=== PATIENT | male | born 1945 | race Caucasian/White ===

== ENCOUNTER 2023-04-04 20:20 | Emergency (ER) | payer OTHER ==
[2023-04-04 20:36] VITALS: BMI 23.8
[2023-04-05 01:03] VITALS: BP 132/89; PULSE 80; RESP 18; TEMP 98.7
[2023-04-05] MEDS ORDERED: MELATONIN 5 MG TABLETS PO ONE (02:23)
[2023-04-05] MEDS ORDERED: MELATONIN 5 MG TABLETS ONE ×2 (02:24→03:11)
[2023-04-05 03:35] LABS: EPI CELLS 5 /uL (0-25.1); HYALINE CASTS 1 /uL (0-3.1); URINE APPEARANCE TURBID; URINE BACTERIA 2496 /uL (0-1359); URINE BILIRUBIN NEGATIVE (NEGATIVE); URINE COLOR ORANGE; URINE GLUCOSE (UA) NEGATIVE (NEGATIVE); URINE KETONE NEGATIVE (NEGATIVE); URINE LEUK ESTERASE 3+ (NEGATIVE); URINE NITRITE NEGATIVE (NEGATIVE); URINE PROTEIN 1+ (NEGATIVE); URINE RBC 2568 /uL (0-23.9); URINE WBC 1100 /uL (0-25.8)
== END 2023-04-05 05:08 ==
LOC: JER 20:20
PROC: 0T9B80Z Drainage of Bladder with Drainage Device, Via Natural or Artificial Opening Endoscopic (ICD-10-PCS; principal; 2023-04-04)
DX: N45.1 Epididymitis (principal); T83.021A Displacement of indwelling urethral catheter, initial encounter; R10.30 Lower abdominal pain, unspecified
CPT/HCPCS: 76856-TC; 76870-TC; 81003; 87077; 87086; 87186; 99284-25

== ENCOUNTER 2023-06-26 05:52 | Observation (INO) | payer OTHER ==
[2023-06-26] MEDS ORDERED: ASPIRIN 81 MG CHEWABLE TABLETS PO ONE (06:02)
[2023-06-26] MEDS ORDERED: ACETAMINOPHEN 1000 MG/100 ML BAG IVPB ONE (06:08)
[2023-06-26] MEDS ORDERED: ASPIRIN 81 MG CHEWABLE TABLETS ONE (06:11)
[2023-06-26 06:16] LABS: BASO % 1.2 % (0-2.0); EOS % 9.5 % (0-4.5); HEMATOCRIT 38.3 % (35.4-49); HEMOGLOBIN 12.5 GM/dL (11.7-16.9); LYMPH % 8.9 % (8-40); MCH 29.7 pg (25.7-33.7); MCHC 32.7 g/dl (32.0-35.9); MEAN CELL VOLUME 91.1 fl (80-96); MEAN PLT VOLUME 7.1 fl (7.5-11.1); MONO % 14.6 % (3.8-10.2); NEUT % 65.8 % (42.8-82.8); PLATELET COUNT 240 10^3/uL (134-434); RDW 13.7 % (11.9-15.9); WHITE BLOOD COUNT 7.6 K/mm3 (4.0-10.0)
[2023-06-26 06:34] LABS: INR 1.04 (0.83-1.09); PROTHROMBIN TIME (PATIENT) 12.1 SEC (9.7-13.0)
[2023-06-26 06:36] LABS: ACTIVATED PTT 30.9 SECONDS (25.2-36.5)
[2023-06-26 06:41] LABS: POTASSIUM 4.4 mmol/L (3.5-5.1)
[2023-06-26 06:43] LABS: BLOOD UREA NITROGEN 10.3 mg/dL (7-18); CALCIUM 9.4 mg/dL (8.5-10.1)
[2023-06-26 06:44] LABS: ALBUMIN 3.6 g/dl (3.4-5.0)
[2023-06-26 06:47] LABS: CREATININE 0.8 mg/dL (0.55-1.3)
[2023-06-26 06:48] LABS: BILIRUBIN,TOTAL 0.5 mg/dL (0.2-1)
[2023-06-26 06:51] LABS: N-TERMINAL BNP 91.5 pg/ml (5-450)
[2023-06-26] MEDS ORDERED: ALBUTEROL SO4 0.083% IH SOL 2.5 MG/3 ML VIAL.NEB. NEB PRN (08:30)
[2023-06-26] MEDS ORDERED: METOPROLOL TARTRATE 25 MG TABLET (FP) ONE (09:29)
[2023-06-26] MEDS ORDERED: ISOSORBIDE MONONITRATE 30 MG TAB.SR.24H (FP) PO ONE (09:30)
[2023-06-26] MEDS ORDERED: MAGNESIUM HYDROX 2400MG/30ML ORAL SUSPENSION 30 ML CUP ONE ×2 (09:30→09:59)
[2023-06-26] MEDS ORDERED: traZODone HCL 50 MG TABLET (FP) ONE (09:31)
[2023-06-26] MEDS ORDERED: PANTOPRAZOLE SODIUM 40 MG/100 ML BAG IVPB ONE (09:32)
[2023-06-26] MEDS: traZODone HCL 50 MG TABLET (FP) PO SCH ×2 (09:55→21:47)
[2023-06-26] MEDS: METOPROLOL TARTRATE 25 MG TABLET (FP) PO SCH (09:56)
[2023-06-26] MEDS: ISOSORBIDE MONONITRATE 30 MG TAB.SR.24H (FP) PO SCH (09:56)
[2023-06-26] MEDS: MAGNESIUM HYDROX 2400MG/30ML ORAL SUSPENSION 30 ML CUP PO SCH ×2 (09:56→21:43)
[2023-06-26] MEDS: PANTOPRAZOLE SODIUM 40 MG VIAL IVPUSH SCH (10:00)
[2023-06-26] MEDS ORDERED: FAMOTIDINE 20 MG TABLET PO SCH (10:00)
[2023-06-26] MEDS ORDERED: POLYETHYLENE GLYCOL 3350 255 GM BTL PO SCH (10:00)
[2023-06-26] MEDS: FINASTERIDE 5 MG TABLET (FP) PO SCH (11:27)
[2023-06-26] MEDS: EZETIMIBE 10 MG TABLET (FP) PO SCH (11:28)
[2023-06-26 20:40] VITALS: BMI 30.9
[2023-06-26] MEDS: ATORVASTATIN CA 80 MG TABLET (FP) PO SCH (21:43)
[2023-06-26] MEDS: SENNOSIDES 8.6MG TABLET (FP) PO SCH (21:43)
[2023-06-26] MEDS: TAMSULOSIN HCL 0.4 MG CAP PO SCH (21:43)
[2023-06-27 07:45] LABS: BASO % 1.4 % (0-2.0); EOS % 10.7 % (0-4.5); HEMATOCRIT 42.1 % (35.4-49); HEMOGLOBIN 14.1 GM/dL (11.7-16.9); LYMPH % 12.8 % (8-40); MCH 29.7 pg (25.7-33.7); MCHC 33.6 g/dl (32.0-35.9); MEAN CELL VOLUME 88.5 fl (80-96); MEAN PLT VOLUME 6.9 fl (7.5-11.1); MONO % 14.3 % (3.8-10.2); NEUT % 60.8 % (42.8-82.8); PLATELET COUNT 268 10^3/uL (134-434); RBC 4.76 M/mm3 (4.00-5.60); RDW 14.1 % (11.9-15.9); WHITE BLOOD COUNT 6.9 K/mm3 (4.0-10.0)
[2023-06-27 08:35] LABS: MAGNESIUM 2.3 mg/dL (1.8-2.4)
[2023-06-27 08:38] LABS: PHOSPHOROUS 2.6 mg/dL (2.5-4.9)
[2023-06-27 08:41] LABS: CHOLESTEROL 186 mg/dL (50-200)
[2023-06-27 08:42] LABS: LDL CHOLESTEROL (ONLY SJRH) 66 mg/dL (5-100)
[2023-06-27 08:44] LABS: HDL CHOLESTEROL 111 mg/dL (40-60)
[2023-06-27] MEDS: ENOXAPARIN NA (PORCINE) 40 MG/0.4 ML DISP.SYRIN SQ SCH (09:17)
[2023-06-27] MEDS: MAGNESIUM HYDROX 2400MG/30ML ORAL SUSPENSION 30 ML CUP PO SCH ×2 (09:18→23:05)
[2023-06-27] MEDS: PANTOPRAZOLE SODIUM 40 MG VIAL IVPUSH SCH (09:18)
[2023-06-27] MEDS: ISOSORBIDE MONONITRATE 30 MG TAB.SR.24H (FP) PO SCH (09:19)
[2023-06-27] MEDS: FINASTERIDE 5 MG TABLET (FP) PO SCH (09:19)
[2023-06-27] MEDS: METOPROLOL TARTRATE 25 MG TABLET (FP) PO SCH (09:19)
[2023-06-27] MEDS: EZETIMIBE 10 MG TABLET (FP) PO SCH (09:19)
[2023-06-27] MEDS: traZODone HCL 50 MG TABLET (FP) PO SCH ×2 (09:21→23:05)
[2023-06-27] MEDS: POLYETHYLENE GLYCOL (HEALTHYLAX) 3350 17 GM PACKET PO SCH (09:31)
[2023-06-27] MEDS: ATORVASTATIN CA 80 MG TABLET (FP) PO SCH (23:05)
[2023-06-27] MEDS: TAMSULOSIN HCL 0.4 MG CAP PO SCH (23:05)
[2023-06-27] MEDS: SENNOSIDES 8.6MG TABLET (FP) PO SCH (23:06)
[2023-06-28] MEDS: ISOSORBIDE MONONITRATE 30 MG TAB.SR.24H (FP) PO SCH (09:37)
[2023-06-28] MEDS: FINASTERIDE 5 MG TABLET (FP) PO SCH (09:37)
[2023-06-28] MEDS: EZETIMIBE 10 MG TABLET (FP) PO SCH (09:37)
[2023-06-28] MEDS: METOPROLOL TARTRATE 25 MG TABLET (FP) PO SCH (09:37)
[2023-06-28] MEDS: traZODone HCL 50 MG TABLET (FP) PO SCH (09:37)
[2023-06-28] MEDS: MAGNESIUM HYDROX 2400MG/30ML ORAL SUSPENSION 30 ML CUP PO SCH (09:38)
[2023-06-28] MEDS: POLYETHYLENE GLYCOL (HEALTHYLAX) 3350 17 GM PACKET PO SCH (09:38)
[2023-06-28] MEDS: ENOXAPARIN NA (PORCINE) 40 MG/0.4 ML DISP.SYRIN SQ SCH (09:38)
[2023-06-28] MEDS: PANTOPRAZOLE SODIUM 40 MG VIAL IVPUSH SCH (09:38)
[2023-06-28 12:49] VITALS: BP 134/74; PULSE 69; RESP 18; TEMP 98.6
== END 2023-06-28 13:05 | disposition home or self-care (01) ==
LOC: JER 05:52 → JERBED 07:27 → J4W 20:31
PROVIDERS: ADMIT Internal Medicine; ATTEND Internal Medicine
PROC: 3E033NZ Introduction of Analgesics, Hypnotics, Sedatives into Peripheral Vein, Percutaneous Approach (ICD-10-PCS; principal; 2023-06-26)
PROC: 3E0F7GC Introduction of Other Therapeutic Substance into Respiratory Tract, Via Natural or Artificial Opening (ICD-10-PCS; 2023-06-26)
PROC: 3E023GC Introduction of Other Therapeutic Substance into Muscle, Percutaneous Approach (ICD-10-PCS; 2023-06-26)
PROC: 3E033GC Introduction of Other Therapeutic Substance into Peripheral Vein, Percutaneous Approach (ICD-10-PCS; 2023-06-26)
DX: I25.10 Atherosclerotic heart disease of native coronary artery without angina pectoris (principal); F03.90 Unspecified dementia, unspecified severity, without behavioral disturbance, psychotic disturbance, mood disturbance, and anxiety; J44.9 Chronic obstructive pulmonary disease, unspecified; Z95.5 Presence of coronary angioplasty implant and graft; H40.9 Unspecified glaucoma; H54.40 Blindness, one eye, unspecified eye; Z87.891 Personal history of nicotine dependence; Z88.0 Allergy status to penicillin
CPT/HCPCS: 36415; 71045-TC-FY; 76700-TC; 80053; 80061; 82550; 83690; 83735; 83880; 84100; 84443; 84484; 85025; 85610; 85730; 87635; 93005; 93010; 93306-TC; 94640; 96372; 96374; 96375; 97116-GP; 97161-GP; 99285-25; G0378

== ENCOUNTER 2023-07-02 04:25 | Inpatient (IN) | payer OTHER ==
[2023-07-02] MEDS ORDERED: ALBUTEROL SO4 0.083% IH SOL 2.5 MG/3 ML VIAL.NEB. NEB ONE ×5 (04:58→16:11)
[2023-07-02 05:20] LABS: VENOUS BASE EXCESS -1.8 mmol/L (-2-2); VENOUS O2 SATURATION 47.3 % (70-80); VENOUS PCO2 53.7 mmHg (38-52); VENOUS PH 7.293 (7.310-7.410)
[2023-07-02 05:30] LABS: BASO % 0.9 % (0-2.0); EOS % 8.9 % (0-4.5); HEMATOCRIT 37.3 % (35.4-49); LYMPH % 11.7 % (8-40); MCH 29.3 pg (25.7-33.7); MCHC 32.2 g/dl (32.0-35.9); MEAN CELL VOLUME 91.1 fl (80-96); MEAN PLT VOLUME 7.3 fl (7.5-11.1); MONO % 13.9 % (3.8-10.2); NEUT % 64.6 % (42.8-82.8); PLATELET COUNT 215 10^3/uL (134-434); RDW 13.6 % (11.9-15.9); WHITE BLOOD COUNT 6.2 K/mm3 (4.0-10.0)
[2023-07-02 05:39] LABS: INR 1.02 (0.83-1.09); POTASSIUM 3.7 mmol/L (3.5-5.1); PROTHROMBIN TIME (PATIENT) 11.8 SEC (9.7-13.0)
[2023-07-02 05:41] LABS: CALCIUM 8.7 mg/dL (8.5-10.1)
[2023-07-02 05:42] LABS: ACTIVATED PTT 26.4 SECONDS (25.2-36.5); ALBUMIN 3.3 g/dl (3.4-5.0); BLOOD UREA NITROGEN 14.7 mg/dL (7-18); MAGNESIUM 2.1 mg/dL (1.8-2.4)
[2023-07-02 05:45] LABS: CREATININE 0.9 mg/dL (0.55-1.3)
[2023-07-02 05:50] LABS: BILIRUBIN,TOTAL 0.3 mg/dL (0.2-1); N-TERMINAL BNP 103.6 pg/ml (5-450); TOT PROT 6.5 g/dl (6.4-8.2)
[2023-07-02] MEDS ORDERED: AZITHROMYCIN IVPB 500 MG/250 ML BAG IVPB ONE ×2 (06:41→06:56)
[2023-07-02] MEDS ORDERED: ALBUTEROL SO4 2.5/IPRATROPIUM 0.5 INH SOL 3 ML VIAL.NEB. NEB PRN (07:56)
[2023-07-02] MEDS: ALBUTEROL SO4 0.083% IH SOL 2.5 MG/3 ML VIAL.NEB. NEB SCH ×4 (09:05→22:53)
[2023-07-02] MEDS ORDERED: POLYETHYLENE GLYCOL (HEALTHYLAX) 3350 17 GM PACKET ONE (09:12)
[2023-07-02] MEDS ORDERED: traZODone HCL 50 MG TABLET (FP) ONE ×2 (09:13→22:32)
[2023-07-02] MEDS ORDERED: ISOSORBIDE MONONITRATE 60 MG TAB.SR.24H (FP) PO ONE (09:13)
[2023-07-02] MEDS ORDERED: ASPIRIN COATED 81 MG TABLET.EC ONE (09:13)
[2023-07-02] MEDS ORDERED: ENOXAPARIN NA (PORCINE) 40 MG/0.4 ML DISP.SYRIN SQ ONE (09:13)
[2023-07-02] MEDS ORDERED: METOPROLOL TARTRATE 25 MG TABLET (FP) ONE ×2 (09:13→22:31)
[2023-07-02] MEDS ORDERED: PANTOPRAZOLE 40 MG TABLET PO ONE (09:13)
[2023-07-02] MEDS: ENOXAPARIN NA (PORCINE) 40 MG/0.4 ML DISP.SYRIN SQ SCH (09:45)
[2023-07-02] MEDS: traZODone HCL 50 MG TABLET (FP) PO SCH ×2 (09:45→22:36)
[2023-07-02] MEDS: POLYETHYLENE GLYCOL (HEALTHYLAX) 3350 17 GM PACKET PO SCH (09:45)
[2023-07-02] MEDS: ASPIRIN COATED 81 MG TABLET.EC PO SCH (09:45)
[2023-07-02] MEDS: ISOSORBIDE MONONITRATE 60 MG TAB.SR.24H (FP) PO SCH (09:45)
[2023-07-02] MEDS: METOPROLOL TARTRATE 25 MG TABLET (FP) PO SCH ×2 (09:45→22:37)
[2023-07-02] MEDS: PANTOPRAZOLE 40 MG TABLET PO SCH (09:46)
[2023-07-02] MEDS ORDERED: MAGNESIUM HYDROX 2400MG/30ML ORAL SUSPENSION 30 ML CUP ONE (09:47)
[2023-07-02] MEDS: MAGNESIUM HYDROX 2400MG/30ML ORAL SUSPENSION 30 ML CUP PO SCH ×2 (10:44→22:37)
[2023-07-02] MEDS: EZETIMIBE 10 MG TABLET (FP) PO SCH (10:44)
[2023-07-02] MEDS: FINASTERIDE 5 MG TABLET (FP) PO SCH (10:44)
[2023-07-02] MEDS ORDERED: predniSONE 20 MG TABLET (UD) ONE (10:46)
[2023-07-02] MEDS: predniSONE 20 MG TABLET (UD) PO SCH (11:15)
[2023-07-02] MEDS ORDERED: LORazepam 1 MG TABLET PO ONE (20:02)
[2023-07-02] MEDS ORDERED: LORazepam 1 MG TABLET ONE (20:04)
[2023-07-02] MEDS ORDERED: SENNOSIDES 8.6MG TABLET (FP) PO ONE (22:31)
[2023-07-02] MEDS ORDERED: ATORVASTATIN CA 40 MG TABLET (FP) ONE (22:31)
[2023-07-02] MEDS ORDERED: TAMSULOSIN HCL 0.4 MG CAP ONE (22:32)
[2023-07-02] MEDS: ATORVASTATIN CA 80 MG TABLET (FP) PO SCH (22:36)
[2023-07-02] MEDS: TAMSULOSIN HCL 0.4 MG CAP PO SCH (22:36)
[2023-07-02] MEDS: SENNOSIDES 8.6MG TABLET (FP) PO SCH (22:37)
[2023-07-02] MEDS ORDERED: HALOPERIDOL LACTATE 5 MG/ML IM ONE ×2 (22:54)
[2023-07-02] MEDS ORDERED: ALBUTEROL SO4 2.5/IPRATROPIUM 0.5 INH SOL 3 ML VIAL.NEB. NEB ONE (22:59)
[2023-07-03 03:29] VITALS: BMI 25.0
[2023-07-03] MEDS: ALBUTEROL SO4 0.083% IH SOL 2.5 MG/3 ML VIAL.NEB. NEB SCH ×4 (07:50→20:05)
[2023-07-03 10:09] LABS: BASO % 0.2 % (0-2.0); EOS % 0.2 % (0-4.5); HEMATOCRIT 36.2 % (35.4-49); HEMOGLOBIN 12.1 GM/dL (11.7-16.9); LYMPH % 7.1 % (8-40); MCH 29.4 pg (25.7-33.7); MCHC 33.4 g/dl (32.0-35.9); MEAN CELL VOLUME 88.1 fl (80-96); MEAN PLT VOLUME 6.9 fl (7.5-11.1); MONO % 15.7 % (3.8-10.2); NEUT % 76.8 % (42.8-82.8); PLATELET COUNT 220 10^3/uL (134-434); RBC 4.11 M/mm3 (4.00-5.60); RDW 14.1 % (11.9-15.9); WHITE BLOOD COUNT 10.8 K/mm3 (4.0-10.0)
[2023-07-03] MEDS: MAGNESIUM HYDROX 2400MG/30ML ORAL SUSPENSION 30 ML CUP PO SCH ×2 (10:32→21:38)
[2023-07-03] MEDS: AZITHROMYCIN IVPB 500 MG/250 ML BAG IVPB SCH (10:32)
[2023-07-03] MEDS: POLYETHYLENE GLYCOL (HEALTHYLAX) 3350 17 GM PACKET PO SCH (10:33)
[2023-07-03] MEDS: predniSONE 20 MG TABLET (UD) PO SCH (10:33)
[2023-07-03] MEDS: traZODone HCL 50 MG TABLET (FP) PO SCH ×2 (10:33→21:38)
[2023-07-03] MEDS: ENOXAPARIN NA (PORCINE) 40 MG/0.4 ML DISP.SYRIN SQ SCH (10:33)
[2023-07-03] MEDS: FINASTERIDE 5 MG TABLET (FP) PO SCH (10:33)
[2023-07-03] MEDS: ASPIRIN COATED 81 MG TABLET.EC PO SCH (10:33)
[2023-07-03 10:34] LABS: POTASSIUM 4.1 mmol/L (3.5-5.1)
[2023-07-03] MEDS: METOPROLOL TARTRATE 25 MG TABLET (FP) PO SCH ×2 (10:34→21:38)
[2023-07-03] MEDS: PANTOPRAZOLE 40 MG TABLET PO SCH (10:34)
[2023-07-03] MEDS: ISOSORBIDE MONONITRATE 60 MG TAB.SR.24H (FP) PO SCH (10:34)
[2023-07-03] MEDS: EZETIMIBE 10 MG TABLET (FP) PO SCH (10:34)
[2023-07-03] MEDS: FAMOTIDINE 20 MG TABLET PO SCH (10:34)
[2023-07-03 10:41] LABS: BLOOD UREA NITROGEN 13.3 mg/dL (7-18); CALCIUM 9.3 mg/dL (8.5-10.1); MAGNESIUM 2.6 mg/dL (1.8-2.4)
[2023-07-03 10:42] LABS: ALBUMIN 3.2 g/dl (3.4-5.0)
[2023-07-03 10:44] LABS: CREATININE 0.7 mg/dL (0.55-1.3); PHOSPHOROUS 2.1 mg/dL (2.5-4.9)
[2023-07-03 10:46] LABS: TOT PROT 6.4 g/dl (6.4-8.2)
[2023-07-03 10:52] LABS: BILIRUBIN,TOTAL 0.3 mg/dL (0.2-1)
[2023-07-03] MEDS ORDERED: HALOPERIDOL LACTATE 5 MG/ML IM PRN (13:54)
[2023-07-03] MEDS: TAMSULOSIN HCL 0.4 MG CAP PO SCH (21:37)
[2023-07-03] MEDS: ATORVASTATIN CA 80 MG TABLET (FP) PO SCH (21:37)
[2023-07-03] MEDS: SENNOSIDES 8.6MG TABLET (FP) PO SCH (21:37)
[2023-07-04] MEDS: ALBUTEROL SO4 0.083% IH SOL 2.5 MG/3 ML VIAL.NEB. NEB SCH ×4 (08:00→19:54)
[2023-07-04 09:50] LABS: BASO % 0.3 % (0-2.0); EOS % 0.5 % (0-4.5); HEMATOCRIT 41.5 % (35.4-49); HEMOGLOBIN 13.2 GM/dL (11.7-16.9); LYMPH % 10.9 % (8-40); MCH 28.6 pg (25.7-33.7); MCHC 31.7 g/dl (32.0-35.9); MEAN CELL VOLUME 90.3 fl (80-96); MEAN PLT VOLUME 7.3 fl (7.5-11.1); MONO % 8.3 % (3.8-10.2); PLATELET COUNT 275 10^3/uL (134-434); RDW 13.9 % (11.9-15.9); WHITE BLOOD COUNT 9.9 K/mm3 (4.0-10.0)
[2023-07-04] MEDS: EZETIMIBE 10 MG TABLET (FP) PO SCH (10:30)
[2023-07-04] MEDS: ISOSORBIDE MONONITRATE 60 MG TAB.SR.24H (FP) PO SCH (10:30)
[2023-07-04] MEDS: MAGNESIUM HYDROX 2400MG/30ML ORAL SUSPENSION 30 ML CUP PO SCH ×2 (10:30→23:27)
[2023-07-04] MEDS: FINASTERIDE 5 MG TABLET (FP) PO SCH (10:30)
[2023-07-04] MEDS: FAMOTIDINE 20 MG TABLET PO SCH (10:31)
[2023-07-04] MEDS: PANTOPRAZOLE 40 MG TABLET PO SCH (10:31)
[2023-07-04] MEDS: traZODone HCL 50 MG TABLET (FP) PO SCH ×2 (10:31→23:25)
[2023-07-04] MEDS: METOPROLOL TARTRATE 25 MG TABLET (FP) PO SCH ×2 (10:31→23:26)
[2023-07-04] MEDS: POLYETHYLENE GLYCOL (HEALTHYLAX) 3350 17 GM PACKET PO SCH (10:32)
[2023-07-04] MEDS: AZITHROMYCIN IVPB 500 MG/250 ML BAG IVPB SCH (10:32)
[2023-07-04] MEDS: ASPIRIN COATED 81 MG TABLET.EC PO SCH (10:32)
[2023-07-04] MEDS: ENOXAPARIN NA (PORCINE) 40 MG/0.4 ML DISP.SYRIN SQ SCH (10:32)
[2023-07-04] MEDS: predniSONE 10 MG TABLET (UD) PO SCH (10:34)
[2023-07-04 10:45] LABS: POTASSIUM 4.3 mmol/L (3.5-5.1)
[2023-07-04 10:48] LABS: ALBUMIN 3.5 g/dl (3.4-5.0); BLOOD UREA NITROGEN 16.2 mg/dL (7-18); MAGNESIUM 2.8 mg/dL (1.8-2.4)
[2023-07-04 10:51] LABS: CREATININE 0.8 mg/dL (0.55-1.3)
[2023-07-04 10:53] LABS: BILIRUBIN,TOTAL 0.5 mg/dL (0.2-1); TOT PROT 7.1 g/dl (6.4-8.2)
[2023-07-04] MEDS: ACETAMINOPHEN 325 MG TABLET (FP) PO PRN (17:05)
[2023-07-04] MEDS: guaiFENesin/D-METHORPHAN HB 10 ML UNIT-DOSE CUPS PO PRN ×2 (17:06→23:32)
[2023-07-04] MEDS: ATORVASTATIN CA 80 MG TABLET (FP) PO SCH (23:26)
[2023-07-04] MEDS: TAMSULOSIN HCL 0.4 MG CAP PO SCH (23:26)
[2023-07-04] MEDS: SENNOSIDES 8.6MG TABLET (FP) PO SCH (23:27)
[2023-07-05] MEDS: ACETAMINOPHEN 325 MG TABLET (FP) PO PRN (04:26)
[2023-07-05] MEDS: ALBUTEROL SO4 0.083% IH SOL 2.5 MG/3 ML VIAL.NEB. NEB SCH ×4 (08:15→20:05)
[2023-07-05] MEDS ORDERED: AZITHROMYCIN 500 MG TABLET PO ONE (08:38)
[2023-07-05] MEDS: traZODone HCL 50 MG TABLET (FP) PO SCH ×2 (11:44→21:34)
[2023-07-05] MEDS: FINASTERIDE 5 MG TABLET (FP) PO SCH (11:44)
[2023-07-05] MEDS: MAGNESIUM HYDROX 2400MG/30ML ORAL SUSPENSION 30 ML CUP PO SCH ×2 (11:44→21:36)
[2023-07-05] MEDS: FAMOTIDINE 20 MG TABLET PO SCH (11:44)
[2023-07-05] MEDS: ASPIRIN COATED 81 MG TABLET.EC PO SCH (11:44)
[2023-07-05] MEDS: ISOSORBIDE MONONITRATE 60 MG TAB.SR.24H (FP) PO SCH (11:45)
[2023-07-05] MEDS: POLYETHYLENE GLYCOL (HEALTHYLAX) 3350 17 GM PACKET PO SCH (11:45)
[2023-07-05] MEDS: METOPROLOL TARTRATE 25 MG TABLET (FP) PO SCH ×2 (11:45→21:35)
[2023-07-05] MEDS: PANTOPRAZOLE 40 MG TABLET PO SCH (11:45)
[2023-07-05] MEDS: EZETIMIBE 10 MG TABLET (FP) PO SCH (11:45)
[2023-07-05] MEDS: AZITHROMYCIN IVPB 500 MG/250 ML BAG IVPB SCH (11:48)
[2023-07-05] MEDS: ENOXAPARIN NA (PORCINE) 40 MG/0.4 ML DISP.SYRIN SQ SCH (11:48)
[2023-07-05] MEDS: predniSONE 10 MG TABLET (UD) PO SCH (11:48)
[2023-07-05] MEDS: TAMSULOSIN HCL 0.4 MG CAP PO SCH (21:35)
[2023-07-05] MEDS: ATORVASTATIN CA 80 MG TABLET (FP) PO SCH (21:35)
[2023-07-05] MEDS: SENNOSIDES 8.6MG TABLET (FP) PO SCH (21:36)
[2023-07-06] MEDS: ALBUTEROL SO4 0.083% IH SOL 2.5 MG/3 ML VIAL.NEB. NEB SCH ×4 (08:05→20:14)
[2023-07-06 10:37] LABS: POTASSIUM 4.1 mmol/L (3.5-5.1)
[2023-07-06 10:40] LABS: HEMOGLOBIN 13.2 GM/dL (11.7-16.9); RBC 4.48 M/mm3 (4.00-5.60)
[2023-07-06 10:41] LABS: BASO % 0.6 % (0-2.0); EOS % 2.1 % (0-4.5); HEMATOCRIT 39.5 % (35.4-49); LYMPH % 14.1 % (8-40); MCH 29.6 pg (25.7-33.7); MCHC 33.6 g/dl (32.0-35.9); MEAN CELL VOLUME 88.1 fl (80-96); MEAN PLT VOLUME 6.7 fl (7.5-11.1); MONO % 12.9 % (3.8-10.2); NEUT % 70.3 % (42.8-82.8); PLATELET COUNT 276 10^3/uL (134-434)
[2023-07-06 10:46] LABS: BLOOD UREA NITROGEN 14.7 mg/dL (7-18)
[2023-07-06 10:48] LABS: CALCIUM 9.9 mg/dL (8.5-10.1)
[2023-07-06] MEDS: ISOSORBIDE MONONITRATE 60 MG TAB.SR.24H (FP) PO SCH (10:54)
[2023-07-06] MEDS: FINASTERIDE 5 MG TABLET (FP) PO SCH (10:55)
[2023-07-06] MEDS: EZETIMIBE 10 MG TABLET (FP) PO SCH (10:55)
[2023-07-06] MEDS: PANTOPRAZOLE 40 MG TABLET PO SCH (10:55)
[2023-07-06] MEDS: traZODone HCL 50 MG TABLET (FP) PO SCH (10:55)
[2023-07-06] MEDS: FAMOTIDINE 20 MG TABLET PO SCH (10:55)
[2023-07-06] MEDS: METOPROLOL TARTRATE 25 MG TABLET (FP) PO SCH (10:56)
[2023-07-06] MEDS: ASPIRIN COATED 81 MG TABLET.EC PO SCH (10:57)
[2023-07-06] MEDS: predniSONE 10 MG TABLET (UD) PO SCH (10:59)
[2023-07-06] MEDS: ENOXAPARIN NA (PORCINE) 40 MG/0.4 ML DISP.SYRIN SQ SCH (11:00)
[2023-07-06] MEDS: POLYETHYLENE GLYCOL (HEALTHYLAX) 3350 17 GM PACKET PO SCH (11:00)
[2023-07-06] MEDS: MAGNESIUM HYDROX 2400MG/30ML ORAL SUSPENSION 30 ML CUP PO SCH (11:00)
[2023-07-07] MEDS: traZODone HCL 50 MG TABLET (FP) PO SCH ×3 (00:21→22:43)
[2023-07-07] MEDS: ATORVASTATIN CA 80 MG TABLET (FP) PO SCH ×2 (00:21→22:43)
[2023-07-07] MEDS: METOPROLOL TARTRATE 25 MG TABLET (FP) PO SCH ×3 (00:22→23:46)
[2023-07-07] MEDS: MAGNESIUM HYDROX 2400MG/30ML ORAL SUSPENSION 30 ML CUP PO SCH ×3 (00:23→22:42)
[2023-07-07] MEDS: SENNOSIDES 8.6MG TABLET (FP) PO SCH ×2 (00:24→22:42)
[2023-07-07] MEDS: TAMSULOSIN HCL 0.4 MG CAP PO SCH ×2 (00:24→22:43)
[2023-07-07 06:51] VITALS: RESP 18
[2023-07-07] MEDS: ALBUTEROL SO4 0.083% IH SOL 2.5 MG/3 ML VIAL.NEB. NEB SCH ×4 (07:15→19:56)
[2023-07-07] MEDS: ENOXAPARIN NA (PORCINE) 40 MG/0.4 ML DISP.SYRIN SQ SCH (09:28)
[2023-07-07] MEDS: EZETIMIBE 10 MG TABLET (FP) PO SCH (09:28)
[2023-07-07] MEDS: POLYETHYLENE GLYCOL (HEALTHYLAX) 3350 17 GM PACKET PO SCH (09:28)
[2023-07-07] MEDS: ASPIRIN COATED 81 MG TABLET.EC PO SCH (09:28)
[2023-07-07] MEDS: PANTOPRAZOLE 40 MG TABLET PO SCH (09:28)
[2023-07-07] MEDS: FINASTERIDE 5 MG TABLET (FP) PO SCH (09:28)
[2023-07-07] MEDS: guaiFENesin/D-METHORPHAN HB 10 ML UNIT-DOSE CUPS PO PRN (09:31)
[2023-07-07] MEDS: FAMOTIDINE 20 MG TABLET PO SCH (09:31)
[2023-07-07] MEDS: ISOSORBIDE MONONITRATE 60 MG TAB.SR.24H (FP) PO SCH (09:31)
[2023-07-08] MEDS: ALBUTEROL SO4 0.083% IH SOL 2.5 MG/3 ML VIAL.NEB. NEB SCH ×4 (07:20→19:19)
[2023-07-08] MEDS: POLYETHYLENE GLYCOL (HEALTHYLAX) 3350 17 GM PACKET PO SCH (09:37)
[2023-07-08] MEDS: FAMOTIDINE 20 MG TABLET PO SCH (09:37)
[2023-07-08] MEDS: EZETIMIBE 10 MG TABLET (FP) PO SCH (09:37)
[2023-07-08] MEDS: FINASTERIDE 5 MG TABLET (FP) PO SCH (09:37)
[2023-07-08] MEDS: ENOXAPARIN NA (PORCINE) 40 MG/0.4 ML DISP.SYRIN SQ SCH (09:37)
[2023-07-08] MEDS: ASPIRIN COATED 81 MG TABLET.EC PO SCH (09:37)
[2023-07-08] MEDS: ISOSORBIDE MONONITRATE 60 MG TAB.SR.24H (FP) PO SCH (09:37)
[2023-07-08] MEDS: PANTOPRAZOLE 40 MG TABLET PO SCH (09:37)
[2023-07-08] MEDS: MAGNESIUM HYDROX 2400MG/30ML ORAL SUSPENSION 30 ML CUP PO SCH ×2 (09:37→21:43)
[2023-07-08] MEDS: traZODone HCL 50 MG TABLET (FP) PO SCH ×2 (09:39→21:43)
[2023-07-08] MEDS: METOPROLOL TARTRATE 25 MG TABLET (FP) PO SCH ×2 (09:39→21:43)
[2023-07-08 10:04] LABS: HEMATOCRIT 40.5 % (35.4-49); HEMOGLOBIN 13.5 GM/dL (11.7-16.9); MCH 29.4 pg (25.7-33.7); MCHC 33.3 g/dl (32.0-35.9); MEAN CELL VOLUME 88.3 fl (80-96); MEAN PLT VOLUME 6.6 fl (7.5-11.1); PLATELET COUNT 298 10^3/uL (134-434); RBC 4.59 M/mm3 (4.00-5.60); RDW 14.1 % (11.9-15.9); WHITE BLOOD COUNT 7.4 K/mm3 (4.0-10.0)
[2023-07-08 10:29] LABS: POTASSIUM 4.5 mmol/L (3.5-5.1)
[2023-07-08 10:32] LABS: CALCIUM 9.4 mg/dL (8.5-10.1)
[2023-07-08 10:33] LABS: BLOOD UREA NITROGEN 18.7 mg/dL (7-18)
[2023-07-08 10:57] LABS: ANISOCYTOSIS 0; HELMET CELLS 0; HOWELL-JOLLY BODIES 0; MACROCYTOSIS 0; OVALOCYTE 0; ROULEAU 0; SICKELED CELLS 0; TARGET CELLS 0; TEAR DROP CELLS 0; TOXIC GRANULATION 0
[2023-07-08] MEDS: ACETAMINOPHEN 325 MG TABLET (FP) PO PRN (16:46)
[2023-07-08 20:18] VITALS: BP 125/64; PULSE 78; TEMP 99
[2023-07-08] MEDS: ATORVASTATIN CA 80 MG TABLET (FP) PO SCH (21:43)
[2023-07-08] MEDS: TAMSULOSIN HCL 0.4 MG CAP PO SCH (21:43)
[2023-07-08] MEDS: SENNOSIDES 8.6MG TABLET (FP) PO SCH (21:43)
== END 2023-07-09 | disposition home or self-care (01) | DRG 193 ==
LOC: JER 04:25 → JERBED 05:51 → J5S 07-03 01:48 → OBSVTOIN 07-03 11:20
PROVIDERS: ADMIT Student in an Organized Health Care Education/Training Program; ATTEND Internal Medicine
DX: J18.9 Pneumonia, unspecified organism (principal); G93.41 Metabolic encephalopathy; J44.0 Chronic obstructive pulmonary disease with (acute) lower respiratory infection; J44.1 Chronic obstructive pulmonary disease with (acute) exacerbation; J98.11 Atelectasis; E87.20 Acidosis, unspecified; I10 Essential (primary) hypertension; E78.5 Hyperlipidemia, unspecified; I25.10 Atherosclerotic heart disease of native coronary artery without angina pectoris; Z95.5 Presence of coronary angioplasty implant and graft; H40.89 Other specified glaucoma; H54.40 Blindness, one eye, unspecified eye; K59.00 Constipation, unspecified; N40.0 Benign prostatic hyperplasia without lower urinary tract symptoms; F03.90 Unspecified dementia, unspecified severity, without behavioral disturbance, psychotic disturbance, mood disturbance, and anxiety; R41.82 Altered mental status, unspecified
CPT/HCPCS: 0241U-QW; 36415; 71045-TC-FY; 71250-TC; 80048; 80053; 82803; 83735; 83880; 84100; 84484; 85025; 85610; 85730; 87070; 87077; 87205; 93005; 93010; 94010; 94640; 97116-GP; 97161-GP; 99285-25; G0378

== ENCOUNTER 2023-07-31 14:45 | Observation (INO) | payer OTHER ==
[2023-07-31 15:08] VITALS: BMI 20.9
[2023-07-31 16:40] LABS: BASO % 0.5 % (0-2.0); EOS % 0.5 % (0-4.5); HEMOGLOBIN 12.3 GM/dL (11.7-16.9); LYMPH % 6.1 % (8-40); MCH 29.1 pg (25.7-33.7); MCHC 32.3 g/dl (32.0-35.9); MEAN PLT VOLUME 6.6 fl (7.5-11.1); MONO % 7.7 % (3.8-10.2); NEUT % 85.2 % (42.8-82.8); PLATELET COUNT 219 10^3/uL (134-434); RBC 4.22 M/mm3 (4.00-5.60); RDW 14.7 % (11.9-15.9); WHITE BLOOD COUNT 7.7 K/mm3 (4.0-10.0)
[2023-07-31] MEDS ORDERED: ALBUTEROL SO4 2.5/IPRATROPIUM 0.5 INH SOL 3 ML VIAL.NEB. NEB ONE (16:51)
[2023-07-31] MEDS: ALBUTEROL SO4 2.5/IPRATROPIUM 0.5 INH SOL 3 ML VIAL.NEB. NEB SCH ×2 (16:52→17:01)
[2023-07-31 16:56] LABS: POTASSIUM 4.5 mmol/L (3.5-5.1)
[2023-07-31 16:58] LABS: CALCIUM 9.5 mg/dL (8.5-10.1)
[2023-07-31 16:59] LABS: ALBUMIN 3.3 g/dl (3.4-5.0); BLOOD UREA NITROGEN 12.6 mg/dL (7-18)
[2023-07-31 17:02] LABS: CREATININE 0.9 mg/dL (0.55-1.3)
[2023-07-31 17:04] LABS: BILIRUBIN,TOTAL 0.6 mg/dL (0.2-1); TOT PROT 6.6 g/dl (6.4-8.2)
[2023-07-31 17:20] LABS: VENOUS BASE EXCESS 0.2 mmol/L (-2-2); VENOUS O2 SATURATION 93.9 % (70-80); VENOUS PH 7.403 (7.310-7.410)
[2023-07-31 17:43] LABS: EPI CELLS 3 /uL (0-25.1); HYALINE CASTS 0 /uL (0-3.1); PH,URINE 7.5 (5.0-8.0); URINE APPEARANCE CLOUDY; URINE BACTERIA 5 /uL (0-1359); URINE BILIRUBIN NEGATIVE (NEGATIVE); URINE COLOR YELLOW; URINE GLUCOSE (UA) NEGATIVE (NEGATIVE); URINE KETONE NEGATIVE (NEGATIVE); URINE LEUK ESTERASE TRACE (NEGATIVE); URINE NITRITE NEGATIVE (NEGATIVE); URINE PROTEIN NEGATIVE (NEGATIVE); URINE RBC 17 /uL (0-23.9); URINE UROBILINOGEN 0.2 mg/dL (0.2-1.0); URINE WBC 25 /uL (0-25.8)
[2023-07-31 18:02] LABS: N-TERMINAL BNP 123.2 pg/ml (5-450)
[2023-07-31] MEDS ORDERED: ATORVASTATIN CA 80 MG TABLET (FP) PO SCH (22:24)
[2023-07-31] MEDS ORDERED: ALBUTEROL SO4 2.5/IPRATROPIUM 0.5 INH SOL 3 ML VIAL.NEB. NEB PRN (22:29)
[2023-07-31] MEDS ORDERED: ACETAMINOPHEN 325 MG TABLET (FP) PO PRN (22:29)
[2023-07-31] MEDS ORDERED: ATORVASTATIN CA 80 MG TABLET (FP) ONE (22:48)
[2023-07-31] MEDS ORDERED: traZODone HCL 50 MG TABLET (FP) ONE (22:48)
[2023-07-31] MEDS: traZODone HCL 50 MG TABLET (FP) PO SCH (22:53)
[2023-08-01 08:24] LABS: BASO % 0.7 % (0-2.0); EOS % 5.4 % (0-4.5); HEMATOCRIT 36.6 % (35.4-49); HEMOGLOBIN 12.4 GM/dL (11.7-16.9); LYMPH % 14.3 % (8-40); MCH 29.4 pg (25.7-33.7); MCHC 33.8 g/dl (32.0-35.9); MEAN CELL VOLUME 86.9 fl (80-96); MEAN PLT VOLUME 6.8 fl (7.5-11.1); MONO % 12.6 % (3.8-10.2); PLATELET COUNT 209 10^3/uL (134-434); RBC 4.21 M/mm3 (4.00-5.60); RDW 14.6 % (11.9-15.9); WHITE BLOOD COUNT 6.9 K/mm3 (4.0-10.0)
[2023-08-01] MEDS ORDERED: TAMSULOSIN HCL 0.4 MG CAP PO SCH (08:30)
[2023-08-01 08:39] LABS: POTASSIUM 3.7 mmol/L (3.5-5.1)
[2023-08-01 08:42] LABS: BLOOD UREA NITROGEN 12.8 mg/dL (7-18); MAGNESIUM 2.1 mg/dL (1.8-2.4)
[2023-08-01 08:45] LABS: CREATININE 0.8 mg/dL (0.55-1.3)
[2023-08-01] MEDS: traZODone HCL 50 MG TABLET (FP) PO SCH (09:18)
[2023-08-01] MEDS ORDERED: ISOSORBIDE MONONITRATE 60 MG TAB.SR.24H (FP) PO SCH (10:00)
[2023-08-01] MEDS ORDERED: FAMOTIDINE 20 MG TABLET PO SCH (10:00)
[2023-08-01] MEDS ORDERED: METOPROLOL TARTRATE 25 MG TABLET (FP) PO SCH (10:00)
[2023-08-01] MEDS ORDERED: predniSONE 10 MG TABLET (UD) PO SCH (10:00)
[2023-08-01] MEDS ORDERED: ASPIRIN COATED 81 MG TABLET.EC PO SCH (10:00)
[2023-08-01] MEDS ORDERED: MAGNESIUM HYDROX 2400MG/30ML ORAL SUSPENSION 30 ML CUP PO SCH (10:00)
[2023-08-01] MEDS ORDERED: EZETIMIBE 10 MG TABLET (FP) PO SCH (10:00)
[2023-08-01] MEDS ORDERED: POLYETHYLENE GLYCOL (HEALTHYLAX) 3350 17 GM PACKET PO SCH (10:00)
[2023-08-01] MEDS ORDERED: FINASTERIDE 5 MG TABLET (FP) PO SCH (10:00)
[2023-08-01 16:01] VITALS: BP 150/72; PULSE 75; RESP 20; TEMP 98.1
[2023-08-01] MEDS ORDERED: SENNOSIDES 8.6MG TABLET (FP) PO SCH (22:00)
== END 2023-08-01 19:03 ==
LOC: JER 14:45 → JERBED 17:47 → J4W 08-01 01:06
PROVIDERS: ADMIT Internal Medicine; ATTEND Internal Medicine
PROC: 3E0F7GC Introduction of Other Therapeutic Substance into Respiratory Tract, Via Natural or Artificial Opening (ICD-10-PCS; principal; 2023-07-31)
PROC: 3E0F7GC Introduction of Other Therapeutic Substance into Respiratory Tract, Via Natural or Artificial Opening (ICD-10-PCS; 2023-07-31)
DX: I25.10 Atherosclerotic heart disease of native coronary artery without angina pectoris (principal); I11.9 Hypertensive heart disease without heart failure; E78.5 Hyperlipidemia, unspecified; J45.909 Unspecified asthma, uncomplicated; H40.9 Unspecified glaucoma; H54.40 Blindness, one eye, unspecified eye; K59.09 Other constipation; N40.0 Benign prostatic hyperplasia without lower urinary tract symptoms; Z87.891 Personal history of nicotine dependence; Z95.5 Presence of coronary angioplasty implant and graft; R07.9 Chest pain, unspecified; Z88.0 Allergy status to penicillin
CPT/HCPCS: 0241U-QW; 36415; 71045-TC-FY; 80048; 80053; 81003; 82803; 83735; 83880; 84484; 85025; 87086; 93005; 93010; 94640; 99285-25; G0378

== ENCOUNTER 2023-11-27 16:23 | Emergency (ER) | payer OTHER ==
[2023-11-27 16:46] VITALS: BP 131/62; PULSE 85; RESP 20; TEMP 97.6; BMI 23.5
[2023-11-27 17:59] LABS: HEMATOCRIT 38.4 % (35.4-49); HEMOGLOBIN 12.5 GM/dL (11.7-16.9); MCH 30.5 pg (25.7-33.7); MCHC 32.7 g/dl (32.0-35.9); MEAN CELL VOLUME 93.3 fl (80-96); MEAN PLT VOLUME 7.1 fl (7.5-11.1); PLATELET COUNT 218 10^3/uL (134-434); RBC 4.11 M/mm3 (4.00-5.60); RDW 13.4 % (11.9-15.9); WHITE BLOOD COUNT 5.6 K/mm3 (4.0-10.0)
[2023-11-27 18:12] LABS: POTASSIUM 4.3 mmol/L (3.5-5.1)
[2023-11-27 18:14] LABS: CALCIUM 9.6 mg/dL (8.5-10.1)
[2023-11-27 18:15] LABS: ALBUMIN 3.3 g/dl (3.4-5.0); MAGNESIUM 2.2 mg/dL (1.8-2.4)
[2023-11-27 18:18] LABS: CREATININE 1.2 mg/dL (0.55-1.3)
[2023-11-27 18:19] LABS: BILIRUBIN,TOTAL 0.4 mg/dL (0.2-1); TOT PROT 6.9 g/dl (6.4-8.2)
[2023-11-27] MEDS ORDERED: NAPH,MB-DB/K PH,MBDB POWDER PACKET PO ONE (18:38)
[2023-11-27] MEDS ORDERED: NAPH,MB-DB/K PH,MBDB POWDER PACKET ONE (18:44)
== END 2023-11-27 20:08 | disposition home or self-care (01) ==
LOC: JER 16:23
DX: M24.542 Contracture, left hand (principal); M79.645 Pain in left finger(s)
CPT/HCPCS: 36415; 80053; 83735; 84100; 85027; 99283-25

== ENCOUNTER 2024-01-22 04:39 | Observation (INO) | payer OTHER ==
[2024-01-22 04:48] VITALS: BMI 22.8
[2024-01-22] MEDS ORDERED: MAG HYDROX/AL HYDROX/SIMETH 30 ML UNIT-DOSE CUP ONE (05:04)
[2024-01-22] MEDS ORDERED: ACETAMINOPHEN INJECTION 100 ML IVPB ONE (05:04)
[2024-01-22] MEDS ORDERED: FAMOTIDINE 20 MG/50 ML IVPB 20 MG/50 ML MG IVPB ONE (05:05)
[2024-01-22] MEDS: FAMOTIDINE 20 MG/50 ML IVPB 20 MG/50 ML MG IVPB ONE (05:22)
[2024-01-22] MEDS: MAG HYDROX/AL HYDROX/SIMETH 30 ML UNIT-DOSE CUP PO ONE (05:22)
[2024-01-22] MEDS: ACETAMINOPHEN 1000 MG/100 ML BAG IVPB ONE (05:22)
[2024-01-22 06:08] LABS: BASO % 0.1 % (0-2.0); HEMATOCRIT 39.9 % (35.4-49); LYMPH % 6.1 % (8-40); MCH 31.2 pg (25.7-33.7); MCHC 32.6 g/dl (32.0-35.9); MEAN CELL VOLUME 95.7 fl (80-96); MEAN PLT VOLUME 7.6 fl (7.5-11.1); MONO % 7.7 % (3.8-10.2); NEUT % 86.1 % (42.8-82.8); PLATELET COUNT 200 10^3/uL (134-434); RBC 4.17 M/mm3 (4.00-5.60); RDW 13.5 % (11.9-15.9); WHITE BLOOD COUNT 8.8 K/mm3 (4.0-10.0)
[2024-01-22 06:35] LABS: POTASSIUM 4.9 mmol/L (3.5-5.1)
[2024-01-22 06:37] LABS: CALCIUM 8.9 mg/dL (8.5-10.1)
[2024-01-22 06:38] LABS: ALBUMIN 3.7 g/dl (3.4-5.0); BLOOD UREA NITROGEN 19.6 mg/dL (7-18)
[2024-01-22 06:42] LABS: TOT PROT 7.2 g/dl (6.4-8.2)
[2024-01-22 06:43] LABS: BILIRUBIN,TOTAL 0.6 mg/dL (0.2-1)
[2024-01-22] MEDS ORDERED: METOPROLOL TARTRATE 25 MG TABLET (FP) ONE (09:13)
[2024-01-22] MEDS ORDERED: ISOSORBIDE MONONITRATE 60 MG TAB.SR.24H (FP) PO ONE (09:14)
[2024-01-22] MEDS ORDERED: ASPIRIN 81 MG CHEWABLE TABLETS ONE (09:14)
[2024-01-22] MEDS: ISOSORBIDE MONONITRATE 60 MG TAB.SR.24H (FP) PO ONE (09:36)
[2024-01-22] MEDS: METOPROLOL TARTRATE 25 MG TABLET (FP) PO ONE (09:36)
[2024-01-22] MEDS: ASPIRIN 81 MG CHEWABLE TABLETS PO ONE (09:36)
[2024-01-22] MEDS ORDERED: ACETAMINOPHEN 325 MG TABLET (FP) PO PRN (10:45)
[2024-01-22 10:58] VITALS: BP 137/82; PULSE 64; RESP 18; TEMP 97.4
[2024-01-22] MEDS ORDERED: LIDOCAINE 4% PATCH TP ONE (11:12)
[2024-01-22] MEDS ORDERED: ALBUTEROL SO4 HFA INHALER IH ONE (11:12)
[2024-01-22] MEDS ORDERED: ENOXAPARIN NA (PORCINE) 40 MG/0.4 ML DISP.SYRIN SQ ONE (11:12)
[2024-01-22] MEDS ORDERED: PANTOPRAZOLE 20 MG TABLET PO ONE (11:12)
[2024-01-22] MEDS: ALBUTEROL SO4 HFA INHALER IH SCH (11:16)
[2024-01-22] MEDS: ENOXAPARIN NA (PORCINE) 40 MG/0.4 ML DISP.SYRIN SQ SCH (11:16)
[2024-01-22] MEDS: PANTOPRAZOLE 20 MG TABLET PO SCH (11:16)
[2024-01-22] MEDS: LIDOCAINE 4% PATCH TP SCH (11:16)
[2024-01-22] MEDS: FINASTERIDE 5 MG TABLET (FP) PO SCH (11:47)
[2024-01-22] MEDS: BUDESONIDE/FORMETEROL FUMARATE 160/4.5 mcg INHALER IH SCH (11:47)
[2024-01-22] MEDS ORDERED: MIRTAZAPINE 15 MG TABLET (FP) PO SCH (22:00)
[2024-01-22] MEDS ORDERED: LIDOCAINE PATCH REMOVAL MC SCH (22:00)
[2024-01-23] MEDS ORDERED: TAMSULOSIN HCL 0.4 MG CAP PO SCH (08:30)
== END 2024-01-22 16:00 ==
LOC: JER 04:39 → JERBED 08:52
PROVIDERS: ADMIT Internal Medicine; ATTEND Internal Medicine
PROC: 3E033NZ Introduction of Analgesics, Hypnotics, Sedatives into Peripheral Vein, Percutaneous Approach (ICD-10-PCS; principal; 2024-01-22)
PROC: 3E023GC Introduction of Other Therapeutic Substance into Muscle, Percutaneous Approach (ICD-10-PCS; 2024-01-22)
PROC: 3E033GC Introduction of Other Therapeutic Substance into Peripheral Vein, Percutaneous Approach (ICD-10-PCS; 2024-01-22)
DX: J45.909 Unspecified asthma, uncomplicated (principal); J44.9 Chronic obstructive pulmonary disease, unspecified; F03.90 Unspecified dementia, unspecified severity, without behavioral disturbance, psychotic disturbance, mood disturbance, and anxiety; I25.10 Atherosclerotic heart disease of native coronary artery without angina pectoris; I11.0 Hypertensive heart disease with heart failure; E78.5 Hyperlipidemia, unspecified; Z95.5 Presence of coronary angioplasty implant and graft; Z87.891 Personal history of nicotine dependence; R01.1 Cardiac murmur, unspecified; H40.89 Other specified glaucoma
CPT/HCPCS: 0241U-QW; 36415; 71045-TC-FY; 71250-TC; 80053; 83690; 84484; 85025; 93005; 93010; 96365; 96375; 99285-25; G0378; J0131

== ENCOUNTER 2024-03-15 14:24 | Observation (INO) | payer OTHER ==
[2024-03-15 15:12] LABS: EOS % 7.4 % (0-4.5); HEMATOCRIT 38.7 % (35.4-49); HEMOGLOBIN 12.9 GM/dL (11.7-16.9); LYMPH % 12.7 % (8-40); MCHC 33.4 g/dl (32.0-35.9); MEAN CELL VOLUME 92.9 fl (80-96); MEAN PLT VOLUME 7.3 fl (7.5-11.1); MONO % 11.9 % (3.8-10.2); PLATELET COUNT 252 10^3/uL (134-434); RBC 4.17 M/mm3 (4.00-5.60); RDW 13.5 % (11.9-15.9); WHITE BLOOD COUNT 7.9 K/mm3 (4.0-10.0)
[2024-03-15 15:12] LABS: VENOUS BASE EXCESS -3.9 mmol/L (-2-2); VENOUS O2 SATURATION 58.5 % (70-80); VENOUS PCO2 46.9 mmHg (38-52); VENOUS PH 7.302 (7.310-7.410)
[2024-03-15 15:17] LABS: EPI CELLS 1 /uL (0-25.1); HYALINE CASTS 0 /uL (0-3.1); URINE APPEARANCE CLEAR; URINE BACTERIA 2 /uL (0-1359); URINE BILIRUBIN NEGATIVE (NEGATIVE); URINE COLOR YELLOW; URINE GLUCOSE (UA) NEGATIVE (NEGATIVE); URINE KETONE NEGATIVE (NEGATIVE); URINE LEUK ESTERASE TRACE (NEGATIVE); URINE NITRITE NEGATIVE (NEGATIVE); URINE PROTEIN NEGATIVE (NEGATIVE); URINE RBC 8 /uL (0-23.9); URINE UROBILINOGEN 0.2 mg/dL (0.2-1.0); URINE WBC 11 /uL (0-25.8)
[2024-03-15 15:20] LABS: INR 0.95 (0.83-1.09); PROTHROMBIN TIME (PATIENT) 10.8 SEC (9.7-13.0)
[2024-03-15 15:23] LABS: ACTIVATED PTT 31.9 SECONDS (25.2-36.5)
[2024-03-15] MEDS ORDERED: ALBUTEROL SO4 2.5/IPRATROPIUM 0.5 INH SOL 3 ML VIAL.NEB. NEB ONE ×3 (15:23→21:43)
[2024-03-15] MEDS ORDERED: methylPREDNISolone NA SUCC 125 MG/2 ML VIAL ONE (15:23)
[2024-03-15] MEDS ORDERED: ACETAMINOPHEN INJECTION 100 ML IVPB ONE (15:23)
[2024-03-15] MEDS ORDERED: FAMOTIDINE 20 MG/50 ML IVPB 20 MG/50 ML MG IVPB ONE (15:25)
[2024-03-15] MEDS: methylPREDNISolone NA SUCC 125 MG/2 ML VIAL IVPUSH ONE (15:35)
[2024-03-15] MEDS: ACETAMINOPHEN 1000 MG/100 ML BAG IVPB ONE (15:35)
[2024-03-15] MEDS: ALBUTEROL SO4 2.5/IPRATROPIUM 0.5 INH SOL 3 ML VIAL.NEB. NEB SCH ×2 (15:35→22:00)
[2024-03-15] MEDS: FAMOTIDINE 20 MG/50 ML IVPB 20 MG/50 ML MG IVPB ONE (15:35)
[2024-03-15 15:36] LABS: POTASSIUM 4.7 mmol/L (3.5-5.1)
[2024-03-15 15:40] LABS: ALBUMIN 3.5 g/dl (3.4-5.0); BLOOD UREA NITROGEN 15.5 mg/dL (7-18); CALCIUM 9.4 mg/dL (8.5-10.1); MAGNESIUM 2.8 mg/dL (1.8-2.4)
[2024-03-15 15:43] LABS: CREATININE 0.9 mg/dL (0.55-1.3)
[2024-03-15 15:45] LABS: BILIRUBIN,TOTAL 0.6 mg/dL (0.2-1); TOT PROT 6.5 g/dl (6.4-8.2)
[2024-03-15 15:48] LABS: N-TERMINAL BNP 99.1 pg/ml (5-450)
[2024-03-15] MEDS: AZITHROMYCIN 500 MG TABLET PO SCH (17:18)
[2024-03-15] MEDS ORDERED: MAGNESIUM HYDROX 2400MG/30ML ORAL SUSPENSION 30 ML CUP ONE (23:02)
[2024-03-15] MEDS ORDERED: SENNOSIDES 8.6MG TABLET (FP) PO ONE (23:02)
[2024-03-15] MEDS ORDERED: ATORVASTATIN CA 80 MG TABLET (FP) ONE (23:02)
[2024-03-15] MEDS ORDERED: METOPROLOL TARTRATE 25 MG TABLET (FP) ONE (23:02)
[2024-03-15] MEDS ORDERED: TAMSULOSIN HCL 0.4 MG CAP ONE (23:03)
[2024-03-15] MEDS ORDERED: traZODone HCL 50 MG TABLET (FP) ONE (23:03)
[2024-03-15] MEDS: SENNOSIDES 8.6MG TABLET (FP) PO SCH (23:19)
[2024-03-15] MEDS: traZODone HCL 50 MG TABLET (FP) PO SCH (23:19)
[2024-03-15] MEDS: ATORVASTATIN CA 80 MG TABLET (FP) PO SCH (23:19)
[2024-03-15] MEDS: TAMSULOSIN HCL 0.4 MG CAP PO SCH (23:19)
[2024-03-15] MEDS: METOPROLOL TARTRATE 25 MG TABLET (FP) PO SCH (23:19)
[2024-03-15] MEDS: MAGNESIUM HYDROX 2400MG/30ML ORAL SUSPENSION 30 ML CUP PO SCH (23:19)
[2024-03-15] MEDS: BUDESONIDE/FORMETEROL FUMARATE 160/4.5 mcg INHALER IH SCH (23:30)
[2024-03-16] MEDS ORDERED: ALBUTEROL SO4 2.5/IPRATROPIUM 0.5 INH SOL 3 ML VIAL.NEB. NEB ONE ×2 (07:19→12:10)
[2024-03-16] MEDS ORDERED: predniSONE 20 MG TABLET (UD) ONE ×2 (09:09→09:15)
[2024-03-16] MEDS ORDERED: POLYETHYLENE GLYCOL (HEALTHYLAX) 3350 17 GM PACKET ONE (09:09)
[2024-03-16] MEDS ORDERED: METOPROLOL TARTRATE 25 MG TABLET (FP) ONE (09:09)
[2024-03-16] MEDS ORDERED: ASPIRIN COATED 81 MG TABLET.EC ONE (09:09)
[2024-03-16] MEDS ORDERED: AZITHROMYCIN 500 MG TABLET ONE (09:10)
[2024-03-16] MEDS ORDERED: FAMOTIDINE 20 MG TABLET ONE (09:10)
[2024-03-16] MEDS ORDERED: ISOSORBIDE MONONITRATE 60 MG TAB.SR.24H (FP) PO ONE (09:10)
[2024-03-16] MEDS ORDERED: traZODone HCL 50 MG TABLET (FP) ONE (09:11)
[2024-03-16] MEDS ORDERED: MAGNESIUM HYDROX 2400MG/30ML ORAL SUSPENSION 30 ML CUP ONE (09:11)
[2024-03-16] MEDS: predniSONE 20 MG TABLET (UD) PO SCH (09:46)
[2024-03-16] MEDS: POLYETHYLENE GLYCOL 3350 255 GM BTL PO SCH (09:47)
[2024-03-16] MEDS: ASPIRIN COATED 81 MG TABLET.EC PO SCH (09:47)
[2024-03-16] MEDS: ISOSORBIDE MONONITRATE 60 MG TAB.SR.24H (FP) PO SCH (09:47)
[2024-03-16] MEDS: FAMOTIDINE 20 MG TABLET PO SCH (09:48)
[2024-03-16 10:03] LABS: HEMATOCRIT 40.9 % (35.4-49); HEMOGLOBIN 13.5 GM/dL (11.7-16.9); MCH 30.6 pg (25.7-33.7); MEAN CELL VOLUME 92.5 fl (80-96); MEAN PLT VOLUME 7.2 fl (7.5-11.1); PLATELET COUNT 240 10^3/uL (134-434); RBC 4.42 M/mm3 (4.00-5.60); RDW 13.5 % (11.9-15.9); WHITE BLOOD COUNT 14.4 K/mm3 (4.0-10.0)
[2024-03-16 10:24] LABS: BLOOD UREA NITROGEN 17.2 mg/dL (7-18)
[2024-03-16 10:27] LABS: CREATININE 0.9 mg/dL (0.55-1.3)
[2024-03-16] MEDS: FINASTERIDE 5 MG TABLET (FP) PO SCH (10:37)
[2024-03-16] MEDS: EZETIMIBE 10 MG TABLET (FP) PO SCH (10:38)
[2024-03-16 10:43] LABS: ANISOCYTOSIS 0; MACROCYTOSIS 0
[2024-03-16 14:17] VITALS: BMI 23.9
[2024-03-16] MEDS: ALBUTEROL SO4 2.5/IPRATROPIUM 0.5 INH SOL 3 ML VIAL.NEB. NEB SCH (15:47)
[2024-03-16] MEDS: traZODone HCL 50 MG TABLET (FP) PO SCH (21:57)
[2024-03-16] MEDS: SENNOSIDES 8.6MG TABLET (FP) PO SCH (21:57)
[2024-03-16] MEDS: METOPROLOL TARTRATE 25 MG TABLET (FP) PO SCH (21:58)
[2024-03-16] MEDS: TAMSULOSIN HCL 0.4 MG CAP PO SCH (21:59)
[2024-03-16] MEDS: ATORVASTATIN CA 80 MG TABLET (FP) PO SCH (21:59)
[2024-03-16] MEDS: MAGNESIUM HYDROX 2400MG/30ML ORAL SUSPENSION 30 ML CUP PO SCH (22:03)
[2024-03-16] MEDS: BUDESONIDE/FORMETEROL FUMARATE 160/4.5 mcg INHALER IH SCH (22:05)
[2024-03-17 06:57] VITALS: RESP 18
[2024-03-17 08:52] LABS: POTASSIUM 4.8 mmol/L (3.5-5.1)
[2024-03-17 09:02] LABS: ALBUMIN 3.8 g/dl (3.4-5.0); CALCIUM 10.2 mg/dL (8.5-10.1)
[2024-03-17 09:03] LABS: BLOOD UREA NITROGEN 18.8 mg/dL (7-18)
[2024-03-17 09:04] LABS: BASO % 0.3 % (0-2.0); EOS % 0.5 % (0-4.5); HEMATOCRIT 41.3 % (35.4-49); HEMOGLOBIN 13.4 GM/dL (11.7-16.9); LYMPH % 9.3 % (8-40); MCH 30.5 pg (25.7-33.7); MCHC 32.5 g/dl (32.0-35.9); MEAN CELL VOLUME 93.7 fl (80-96); MEAN PLT VOLUME 7.5 fl (7.5-11.1); MONO % 9.7 % (3.8-10.2); NEUT % 80.2 % (42.8-82.8); PLATELET COUNT 246 10^3/uL (134-434); RDW 13.6 % (11.9-15.9); WHITE BLOOD COUNT 12.1 K/mm3 (4.0-10.0)
[2024-03-17 09:07] LABS: BILIRUBIN,TOTAL 0.9 mg/dL (0.2-1); TOT PROT 7.1 g/dl (6.4-8.2)
[2024-03-17] MEDS: predniSONE 20 MG TABLET (UD) PO SCH (09:42)
[2024-03-17] MEDS: FINASTERIDE 5 MG TABLET (FP) PO SCH (09:43)
[2024-03-17] MEDS: FAMOTIDINE 20 MG TABLET PO SCH (09:43)
[2024-03-17] MEDS: ASPIRIN COATED 81 MG TABLET.EC PO SCH (09:43)
[2024-03-17] MEDS: ISOSORBIDE MONONITRATE 60 MG TAB.SR.24H (FP) PO SCH (09:44)
[2024-03-17] MEDS: POLYETHYLENE GLYCOL (HEALTHYLAX) 3350 17 GM PACKET PO SCH (09:47)
[2024-03-17] MEDS: EZETIMIBE 10 MG TABLET (FP) PO SCH (09:47)
[2024-03-17] MEDS: AZITHROMYCIN 500 MG TABLET PO SCH (09:47)
[2024-03-17 13:55] VITALS: BP 114/59; PULSE 77; TEMP 98.4
== END 2024-03-17 17:37 | disposition home or self-care (01) ==
LOC: JER 14:24 → JERBED 16:48 → J7W 03-16 12:29
PROVIDERS: ADMIT Internal Medicine; ATTEND Internal Medicine
PROC: 3E033NZ Introduction of Analgesics, Hypnotics, Sedatives into Peripheral Vein, Percutaneous Approach (ICD-10-PCS; principal; 2024-03-15)
PROC: 3E0F7GC Introduction of Other Therapeutic Substance into Respiratory Tract, Via Natural or Artificial Opening (ICD-10-PCS; 2024-03-15)
PROC: 3E033GC Introduction of Other Therapeutic Substance into Peripheral Vein, Percutaneous Approach (ICD-10-PCS; 2024-03-15)
DX: J44.1 Chronic obstructive pulmonary disease with (acute) exacerbation (principal); F03.90 Unspecified dementia, unspecified severity, without behavioral disturbance, psychotic disturbance, mood disturbance, and anxiety; I25.10 Atherosclerotic heart disease of native coronary artery without angina pectoris; I11.0 Hypertensive heart disease with heart failure; E78.5 Hyperlipidemia, unspecified; H40.9 Unspecified glaucoma; Z95.5 Presence of coronary angioplasty implant and graft; N40.0 Benign prostatic hyperplasia without lower urinary tract symptoms; R20.0 Anesthesia of skin; Z87.891 Personal history of nicotine dependence; R07.89 Other chest pain; Z88.0 Allergy status to penicillin; Z91.013 Allergy to seafood
CPT/HCPCS: 0241U-QW; 36415; 70450-TC; 71045-TC-FY; 80048; 80053; 81003; 82550; 82803; 83735; 83880; 84484; 85025; 85610; 85730; 86850; 86900; 86901; 87086; 93005; 93010; 94640; 96365; 96375; 97116-GP; 97161-GP; 99285-25; G0378; J0131

== ENCOUNTER 2024-09-02 11:11 | Day surgery (SDC) | payer OTHER ==
[2024-09-02 11:50] VITALS: BMI 25.3
[2024-09-02 13:40] VITALS: TEMP 97.2
[2024-09-02 13:44] VITALS: BP 104/62; PULSE 76; RESP 19
== END 2024-09-02 13:26 | disposition home or self-care (01) ==
LOC: FASU-ENDO 11:11
PROVIDERS: ATTEND Internal Medicine Gastroenterology
PROC: 0DJD8ZZ Inspection of Lower Intestinal Tract, Via Natural or Artificial Opening Endoscopic (ICD-10-PCS; principal; 2024-09-02 12:37)
DX: Z12.11 Encounter for screening for malignant neoplasm of colon (principal); K64.1 Second degree hemorrhoids; K64.8 Other hemorrhoids; K92.1 Melena

== ENCOUNTER 2024-09-16 14:02 | Inpatient (IN) | payer OTHER ==
[2024-09-16] MEDS ORDERED: ALBUTEROL SO4 2.5/IPRATROPIUM 0.5 INH SOL 3 ML VIAL.NEB. NEB ONE ×2 (15:14→22:15)
[2024-09-16] MEDS ORDERED: methylPREDNISolone NA SUCC 125 MG/2 ML VIAL ONE (15:15)
[2024-09-16] MEDS: ALBUTEROL SO4 2.5/IPRATROPIUM 0.5 INH SOL 3 ML VIAL.NEB. NEB SCH ×2 (15:21→22:25)
[2024-09-16] MEDS: methylPREDNISolone NA SUCC 125 MG/2 ML VIAL IVPUSH ONE (15:21)
[2024-09-16 15:22] LABS: VENOUS O2 SATURATION 68.8 % (70-80); VENOUS PCO2 51.2 mmHg (38-52); VENOUS PH 7.362 (7.310-7.410)
[2024-09-16 15:36] LABS: BASO % 0.8 % (0-2.0); HEMATOCRIT 39.7 % (35.4-49); HEMOGLOBIN 13.2 GM/dL (11.7-16.9); LYMPH % 9.2 % (8-40); MCH 31.3 pg (25.7-33.7); MCHC 33.3 g/dl (32.0-35.9); MEAN PLT VOLUME 6.3 fl (7.5-11.1); MONO % 13.3 % (3.8-10.2); NEUT % 72.7 % (42.8-82.8); PLATELET COUNT 289 10^3/uL (134-434); RBC 4.22 M/mm3 (4.00-5.60); RDW 13.8 % (11.9-15.9); WHITE BLOOD COUNT 8.9 K/mm3 (4.0-10.0)
[2024-09-16 15:43] LABS: POTASSIUM 5.1 mmol/L (3.5-5.1)
[2024-09-16 15:44] LABS: CALCIUM 9.7 mg/dL (8.5-10.1)
[2024-09-16 15:45] LABS: ALBUMIN 3.4 g/dl (3.4-5.0); BLOOD UREA NITROGEN 22.4 mg/dL (7-18)
[2024-09-16 15:50] LABS: BILIRUBIN,TOTAL 0.4 mg/dL (0.2-1); TOT PROT 6.4 g/dl (6.4-8.2)
[2024-09-16] MEDS ORDERED: CEFTRIAXONE 1 GM/50 ML BAG ONE (16:17)
[2024-09-16] MEDS ORDERED: AZITHROMYCIN IVPB 500 MG/250 ML BAG IVPB ONE (16:34)
[2024-09-16] MEDS: AZITHROMYCIN IVPB 500 MG in DEXTROSE 5%-WATER - 250 ML IVPB ONE (16:43)
[2024-09-16] MEDS ORDERED: MAGNESIUM HYDROX 2400MG/30ML ORAL SUSPENSION 30 ML CUP ONE (22:15)
[2024-09-16] MEDS ORDERED: ATORVASTATIN CA 80 MG TABLET (FP) ONE (22:15)
[2024-09-16] MEDS ORDERED: METOPROLOL TARTRATE 25 MG TABLET (FP) ONE (22:15)
[2024-09-16] MEDS ORDERED: SENNOSIDES 8.6MG TABLET (FP) PO ONE (22:15)
[2024-09-16] MEDS ORDERED: HEPARIN NA (PORCINE) 5,000 UNITS/ML 1ML VIAL ONE (22:16)
[2024-09-16] MEDS ORDERED: TAMSULOSIN HCL 0.4 MG CAP ONE (22:16)
[2024-09-16] MEDS: MAGNESIUM HYDROX 2400MG/30ML ORAL SUSPENSION 30 ML CUP PO SCH (22:26)
[2024-09-16] MEDS: HEPARIN NA (PORCINE) 5,000 UNITS/ML 1ML VIAL SQ SCH (22:26)
[2024-09-16] MEDS: METOPROLOL TARTRATE 25 MG TABLET (FP) PO SCH (22:26)
[2024-09-16] MEDS: SENNOSIDES 8.6MG TABLET (FP) PO SCH (22:26)
[2024-09-16] MEDS: ATORVASTATIN CA 80 MG TABLET (FP) PO SCH (22:26)
[2024-09-16] MEDS: TAMSULOSIN HCL 0.4 MG CAP PO SCH (22:26)
[2024-09-17] MEDS: BUDESONIDE/FORMETEROL FUMARATE 160/4.5 mcg INHALER IH SCH (03:16)
[2024-09-17 06:03] VITALS: BMI 26.5
[2024-09-17 07:37] LABS: HEMATOCRIT 42.1 % (35.4-49); HEMOGLOBIN 13.9 GM/dL (11.7-16.9); MCH 31.3 pg (25.7-33.7); MCHC 32.9 g/dl (32.0-35.9); MEAN CELL VOLUME 95.1 fl (80-96); MEAN PLT VOLUME 6.5 fl (7.5-11.1); PLATELET COUNT 296 10^3/uL (134-434); RBC 4.43 M/mm3 (4.00-5.60); RDW 13.1 % (11.9-15.9); WHITE BLOOD COUNT 13.7 K/mm3 (4.0-10.0)
[2024-09-17 07:54] LABS: POTASSIUM 4.4 mmol/L (3.5-5.1)
[2024-09-17 08:00] LABS: BLOOD UREA NITROGEN 20.8 mg/dL (7-18); CALCIUM 9.6 mg/dL (8.5-10.1)
[2024-09-17 08:03] LABS: CREATININE 0.9 mg/dL (0.55-1.3)
[2024-09-17 08:58] LABS: ANISOCYTOSIS 0; MACROCYTOSIS 0
[2024-09-17] MEDS: EZETIMIBE 10 MG TABLET (FP) PO SCH (12:11)
[2024-09-17] MEDS: FAMOTIDINE 20 MG TABLET PO SCH (12:12)
[2024-09-17] MEDS: FINASTERIDE 5 MG TABLET (FP) PO SCH (12:12)
[2024-09-17] MEDS: ISOSORBIDE MONONITRATE 60 MG TAB.SR.24H (FP) PO SCH (12:12)
[2024-09-17] MEDS: ASPIRIN COATED 81 MG TABLET.EC PO SCH (12:13)
[2024-09-17] MEDS: methylPREDNISolone NA SUCC 40 MG/1 ML VIAL IVPUSH SCH (15:15)
[2024-09-17] MEDS: REMDESIVIR 200 MG in SODIUM CHLORIDE 250 ML IVPB ONE (15:15)
[2024-09-18 08:52] LABS: HEMATOCRIT 41.8 % (35.4-49); HEMOGLOBIN 13.9 GM/dL (11.7-16.9); MCH 31.5 pg (25.7-33.7); MCHC 33.1 g/dl (32.0-35.9); MEAN PLT VOLUME 6.7 fl (7.5-11.1); PLATELET COUNT 301 10^3/uL (134-434); RDW 13.6 % (11.9-15.9); WHITE BLOOD COUNT 16.6 K/mm3 (4.0-10.0)
[2024-09-18 09:07] LABS: POTASSIUM 4.8 mmol/L (3.5-5.1)
[2024-09-18 09:11] LABS: CALCIUM 9.7 mg/dL (8.5-10.1)
[2024-09-18 09:12] LABS: BLOOD UREA NITROGEN 19.7 mg/dL (7-18); MAGNESIUM 2.4 mg/dL (1.8-2.4)
[2024-09-18 10:04] LABS: ANISOCYTOSIS 0; MACROCYTOSIS 0
[2024-09-18] MEDS: REMDESIVIR 100 MG in SODIUM CHLORIDE 250 ML IVPB SCH (15:06)
[2024-09-19] MEDS: ALBUTEROL SO4 2.5/IPRATROPIUM 0.5 INH SOL 3 ML VIAL.NEB. NEB SCH (07:40)
[2024-09-19 10:03] LABS: HEMATOCRIT 42.7 % (35.4-49); HEMOGLOBIN 14.5 GM/dL (11.7-16.9); MCH 31.8 pg (25.7-33.7); MEAN CELL VOLUME 93.5 fl (80-96); MEAN PLT VOLUME 6.8 fl (7.5-11.1); PLATELET COUNT 332 10^3/uL (134-434); RBC 4.57 M/mm3 (4.00-5.60); RDW 13.6 % (11.9-15.9); WHITE BLOOD COUNT 20.4 K/mm3 (4.0-10.0)
[2024-09-19 10:15] LABS: POTASSIUM 4.8 mmol/L (3.5-5.1)
[2024-09-19 11:03] LABS: BLOOD UREA NITROGEN 21.1 mg/dL (7-18); CALCIUM 10.2 mg/dL (8.5-10.1)
[2024-09-19 11:07] LABS: CREATININE 0.9 mg/dL (0.55-1.3)
[2024-09-19 11:08] LABS: ANISOCYTOSIS 0; MACROCYTOSIS 0
[2024-09-19] MEDS: FAMOTIDINE 20 MG TABLET PO SCH (12:35)
[2024-09-19] MEDS: HEPARIN NA (PORCINE) 5,000 UNITS/ML 1ML VIAL SQ SCH (12:35)
[2024-09-19] MEDS: ASPIRIN COATED 81 MG TABLET.EC PO SCH (12:35)
[2024-09-19] MEDS: METOPROLOL TARTRATE 25 MG TABLET (FP) PO SCH (12:35)
[2024-09-19] MEDS: ISOSORBIDE MONONITRATE 60 MG TAB.SR.24H (FP) PO SCH (12:35)
[2024-09-19] MEDS: EZETIMIBE 10 MG TABLET (FP) PO SCH (12:42)
[2024-09-19] MEDS: MAGNESIUM HYDROX 2400MG/30ML ORAL SUSPENSION 30 ML CUP PO SCH (12:42)
[2024-09-19] MEDS: BUDESONIDE/FORMETEROL FUMARATE 160/4.5 mcg INHALER IH SCH (14:29)
[2024-09-19] MEDS: FINASTERIDE 5 MG TABLET (FP) PO SCH (14:29)
[2024-09-19] MEDS: REMDESIVIR 100 MG in SODIUM CHLORIDE 250 ML IVPB SCH (15:06)
[2024-09-19] MEDS: methylPREDNISolone NA SUCC 40 MG/1 ML VIAL IVPUSH SCH (15:29)
[2024-09-19] MEDS: ENOXAPARIN NA (PORCINE) 40 MG/0.4 ML DISP.SYRIN SQ SCH (15:29)
[2024-09-19] MEDS: TAMSULOSIN HCL 0.4 MG CAP PO SCH (22:09)
[2024-09-19] MEDS: ATORVASTATIN CA 80 MG TABLET (FP) PO SCH (22:09)
[2024-09-19] MEDS: SENNOSIDES 8.6MG TABLET (FP) PO SCH (22:10)
[2024-09-20] MEDS: predniSONE 20 MG TABLET (UD) PO SCH (10:56)
[2024-09-20 15:01] VITALS: RESP 18
[2024-09-20 17:47] LABS: HEMATOCRIT 43.7 % (35.4-49); HEMOGLOBIN 14.3 GM/dL (11.7-16.9); MCH 31.3 pg (25.7-33.7); MCHC 32.7 g/dl (32.0-35.9); MEAN CELL VOLUME 95.8 fl (80-96); MEAN PLT VOLUME 6.4 fl (7.5-11.1); PLATELET COUNT 278 10^3/uL (134-434); RBC 4.56 M/mm3 (4.00-5.60); RDW 13.6 % (11.9-15.9); WHITE BLOOD COUNT 15.9 K/mm3 (4.0-10.0)
[2024-09-20 18:55] LABS: POTASSIUM 5.1 mmol/L (3.5-5.1)
[2024-09-20 18:57] LABS: BLOOD UREA NITROGEN 20.2 mg/dL (7-18); CALCIUM 9.6 mg/dL (8.5-10.1)
[2024-09-20 19:01] LABS: CREATININE 0.9 mg/dL (0.55-1.3)
[2024-09-20 19:14] LABS: ANISOCYTOSIS 0; MACROCYTOSIS 0
[2024-09-21 10:07] LABS: HEMATOCRIT 41.7 % (35.4-49); HEMOGLOBIN 13.8 GM/dL (11.7-16.9); MCH 31.4 pg (25.7-33.7); MCHC 33.2 g/dl (32.0-35.9); MEAN CELL VOLUME 94.7 fl (80-96); MEAN PLT VOLUME 6.6 fl (7.5-11.1); PLATELET COUNT 259 10^3/uL (134-434); RDW 13.3 % (11.9-15.9)
[2024-09-21] MEDS: predniSONE 10 MG TABLET (UD) PO SCH (10:13)
[2024-09-21 10:28] LABS: CALCIUM 9.5 mg/dL (8.5-10.1)
[2024-09-21 10:29] LABS: BLOOD UREA NITROGEN 17.7 mg/dL (7-18)
[2024-09-21 10:44] LABS: ANISOCYTOSIS 0; MACROCYTOSIS 0
[2024-09-21 15:21] VITALS: BP 109/60; PULSE 82; TEMP 98.2
== END 2024-09-21 16:50 | DRG 177 ==
LOC: JER 14:02 → JERBED 16:01 → J4S 09-17 01:00 → J8W 09-18 19:16
PROVIDERS: ADMIT Internal Medicine; ATTEND Internal Medicine
PROC: XW033E5 Introduction of Remdesivir Anti-infective into Peripheral Vein, Percutaneous Approach, New Technology Group 5 (ICD-10-PCS; principal; 2024-09-17)
DX: U07.1 COVID-19 (principal); J12.82 Pneumonia due to coronavirus disease 2019; J44.1 Chronic obstructive pulmonary disease with (acute) exacerbation; I25.10 Atherosclerotic heart disease of native coronary artery without angina pectoris; E78.00 Pure hypercholesterolemia, unspecified; I10 Essential (primary) hypertension; D72.829 Elevated white blood cell count, unspecified; H40.9 Unspecified glaucoma; F03.90 Unspecified dementia, unspecified severity, without behavioral disturbance, psychotic disturbance, mood disturbance, and anxiety; N40.0 Benign prostatic hyperplasia without lower urinary tract symptoms; H54.40 Blindness, one eye, unspecified eye; Z88.0 Allergy status to penicillin; Z95.5 Presence of coronary angioplasty implant and graft
CPT/HCPCS: 0241U-QW; 36415; 71045-TC-FY; 80048; 80053; 82803; 83036; 83735; 84484; 85025; 86140; 87635; 93005; 93010; 94640; 94761; 99285-25; J0248; J1644

== ENCOUNTER 2024-10-25 07:40 | Emergency (ER) | payer OTHER ==
[2024-10-25 08:02] VITALS: BP 161/80; PULSE 83; RESP 20; TEMP 98.6; BMI 27.6
[2024-10-25] MEDS ORDERED: DIPHTH,PERTUSS(ACELL),TET 0.5 ML DISP.SYRIN IM ONE (09:58)
[2024-10-25] MEDS: DIPHTH,PERTUSS(ACELL),TET 0.5 ML DISP.SYRIN IM ONE (09:59)
[2024-10-25] MEDS: LIDOCAINE HCL 1%, 10 MG/ML (50 mL VIAL) SQ ONE (10:59)
== END 2024-10-25 13:33 | disposition home or self-care (01) ==
LOC: JER 07:40
PROC: 0HQ0XZZ Repair Scalp Skin, External Approach (ICD-10-PCS; principal; 2024-10-25)
PROC: 3E0234Z Introduction of Serum, Toxoid and Vaccine into Muscle, Percutaneous Approach (ICD-10-PCS; 2024-10-25)
DX: S01.01XA Laceration without foreign body of scalp, initial encounter (principal); W19.XXXA Unspecified fall, initial encounter; Z23 Encounter for immunization
CPT/HCPCS: 12001-25; 12002-25; 70450-TC; 72125-TC; 90471; 90715; 99284-25

== ENCOUNTER 2025-05-22 19:23 | Emergency (ER) | payer OTHER ==
[2025-05-22 20:06] VITALS: BMI 25.0
[2025-05-22] MEDS: ACETAMINOPHEN 1000 MG/100 ML BAG IVPB ONE (21:06)
[2025-05-22] MEDS: ALBUTEROL SO4 2.5/IPRATROPIUM 0.5 INH SOL 3 ML VIAL.NEB. NEB SCH (21:06)
[2025-05-22] MEDS: methylPREDNISolone NA SUCC 125 MG/2 ML VIAL IVPB ONE (21:06)
[2025-05-22] MEDS ORDERED: ALBUTEROL SO4 2.5/IPRATROPIUM 0.5 INH SOL 3 ML VIAL.NEB. NEB ONE (21:08)
[2025-05-22] MEDS ORDERED: methylPREDNISolone NA SUCC 125 MG/2 ML VIAL ONE (21:09)
[2025-05-22] MEDS ORDERED: ACETAMINOPHEN INJECTION 100 ML ONE (21:09)
[2025-05-22] MEDS ORDERED: FAMOTIDINE 10 MG/ML VIAL IVPB ONE (21:26)
[2025-05-22 21:31] LABS: ABSOLUTE IMMATURE GRANULOCYTES 0.04 x10^3/uL (0.0-0.031); BASOPHILS # 0.05 x10^3/uL (0.01-0.08); EOSINOPHIL % 4.5 % (0.8-7.0); EOSINOPHILS # 0.34 x10^3/uL (0.04-0.54); MCHC 31.9 g/dl (32.3-36.5); MEAN CELL VOLUME 92.8 fl (79.0-92.2); MEAN PLT VOLUME 8.7 fl (9.4-12.4); MONOCYTE # 1.04 x10^3/uL (0.30-0.82); MONOCYTE % 13.8 % (5.3-12.2); RDW 12.3 % (12.2-16.6)
[2025-05-22] MEDS: MAG HYDROX/AL HYDROX/SIMETH -MYLANTA- ORAL SUSPENSION PO ONE (21:38)
[2025-05-22] MEDS: FAMOTIDINE 20 MG/50 ML IVPB 20 MG/50 ML MG IVPB ONE (21:38)
[2025-05-22 22:46] LABS: HCV DIAGNOSTIC IN-HOUSE W/RFLX NON-REACTIVE (NONREACTIVE)
[2025-05-22 22:47] LABS: HIV INTERPRETATION NEGATIVE (NEGATIVE)
[2025-05-22] MEDS: CEFUROXIME AXETIL 500 MG TABLET PO ONE (23:34)
[2025-05-22] MEDS: AZITHROMYCIN 250 MG TABLET PO ONE (23:47)
[2025-05-22] MEDS ORDERED: AZITHROMYCIN 500 MG TABLET ONE (23:49)
[2025-05-22 23:57] LABS: CO2 25.0 mmol/L (21-32); GLUCOSE,RANDOM 168.0 mg/dL (74-106)
[2025-05-23] LABS: CREATININE 0.8 mg/dL (0.55-1.3); SGOT/AST 36.0 U/L (15-37); SGPT/ALT 44.0 U/L (13-61)
[2025-05-23 00:02] LABS: TOT PROT 6.8 g/dl (6.4-8.2)
[2025-05-23 00:04] LABS: ALK PHOS 127.0 U/L (45-117)
[2025-05-23 01:15] VITALS: BP 122/56; PULSE 83; RESP 18; TEMP 98
== END 2025-05-23 02:45 | disposition home or self-care (01) ==
LOC: JER 19:23
PROC: 3E033GC Introduction of Other Therapeutic Substance into Peripheral Vein, Percutaneous Approach (ICD-10-PCS; principal; 2025-05-22)
PROC: 3E033GC Introduction of Other Therapeutic Substance into Peripheral Vein, Percutaneous Approach (ICD-10-PCS; 2025-05-22)
PROC: 3E033NZ Introduction of Analgesics, Hypnotics, Sedatives into Peripheral Vein, Percutaneous Approach (ICD-10-PCS; 2025-05-22)
PROC: 3E0F7GC Introduction of Other Therapeutic Substance into Respiratory Tract, Via Natural or Artificial Opening (ICD-10-PCS; 2025-05-22)
DX: M79.651 Pain in right thigh (principal); R07.9 Chest pain, unspecified
CPT/HCPCS: 36415; 71045-TC-FY; 80053; 84484; 85025; 86803; 87389; 93005; 93010; 99285-25